=== PATIENT | male | born 1955 | race Caucasian/White ===

== ENCOUNTER 2017-10-25 11:18 | Outpatient (CLI) | payer MEDICARE ==
[~2017-10-25 11:18] MED LIST: FAMO-1 PO; ZOF4T PO
[2017-10-25 11:53] LABS: BASOPHILS # (AUTO) 0.1 X10'3 (0-0.2); BASOPHILS % (AUTO) 0.9 % (0-1); EOSINOPHILS # (AUTO) 0.1 X10'3 (0-0.9); EOSINOPHILS % (AUTO) 1.9 % (0-6); HEMATOCRIT 43.2 % (42.0-52.0); HEMOGLOBIN 14.8 g/dl (14.0-17.9); LYMPHOCYTES # (AUTO) 1.9 X10'3 (1.1-4.8); LYMPHOCYTES % (AUTO) 25.8 % (21-51); MEAN CORPUSCULAR HEMOGLOBIN 30.8 PG (27.0-31.0); MEAN CORPUSCULAR HGB CONC 34.3 % (33.0-36.5); MEAN CORPUSCULAR VOLUME 89.8 FL (78-98); MEAN PLATELET VOLUME 7.8 FL (7.4-10.4); MONOCYTES # (AUTO) 0.5 X10'3 (0-0.9); MONOCYTES % (AUTO) 7.2 % (2-12); NEUTROPHILS # (AUTO) 4.6 X10'3 (1.8-7.7); NEUTROPHILS % (AUTO) 64.2 % (42-75); PLATELET COUNT 251 X10'3 (140-440); RED BLOOD COUNT 4.81 X10'6 (4.70-6.10); RED CELL DISTRIBUTION WIDTH 12.9 % (11.5-14.5); WHITE BLOOD COUNT 7.2 X10'3 (4.5-11.0)
[2017-10-25 12:06] LABS: PARTIAL THROMBOPLASTIN TIME 26 SECONDS (22-32)
[2017-10-25 12:11] LABS: ANION GAP 6 (8-16); BLOOD UREA NITROGEN 14 MG/DL (7-18); BUN/CREATININE RATIO 15.9 (5.4-32.0); CALCIUM 9.5 MG/DL (8.5-10.1); CHLORIDE 103 MMOL/L (99-107); CREATININE 0.88 MG/DL (0.60-1.10); GLUCOSE 96 MG/DL (70-104); POTASSIUM 4.4 MMOL/L (3.5-5.1); SODIUM 139 MMOL/L (135-145); TOTAL CARBON DIOXIDE 30.3 MMOL/L (24-32); eGFR 88 ML/MIN
== END 2017-10-25 23:59 | disposition home or self-care (01) ==
LOC: SSTAY O 11:18 → EDSTATUS 10-28 06:30
PROVIDERS: ATTEND Internal Medicine Interventional Cardiology
DX: E78.4 Other hyperlipidemia (principal); G47.10 Hypersomnia, unspecified; R00.1 Bradycardia, unspecified; R07.2 Precordial pain; R06.02 Shortness of breath; Z98.890 Other specified postprocedural states
CPT/HCPCS: 36415; 80048; 85025; 85610; 85730

== ENCOUNTER 2017-11-02 05:12 | Day surgery (SDC) | payer MEDICARE ==
[~2017-11-02] VITALS: Ht 180.3 cm; Wt 106.2 kg
[2017-11-02] VITALS (12 sets, daily range): BP systolic 89–135; BP diastolic 48–83
[2017-11-02] MEDS ORDERED: ASPI81TA52 PO (05:22)
[2017-11-02] MEDS ORDERED: LORazepam 0.5 MG tablet PO ONE (05:35)
[2017-11-02] MEDS ORDERED: diphenhydrAMINE 25mg capsule PO ONE (05:35)
[2017-11-02] MEDS ORDERED: normal saline 1000ml 1,000 ML IV ONE (05:35)
[2017-11-02 06:06] LABS: BASOPHILS % (AUTO) 0.9 % (0-1); EOSINOPHILS # (AUTO) 0.2 X10'3 (0-0.9); EOSINOPHILS % (AUTO) 4.5 % (0-6); HEMATOCRIT 46.7 % (42.0-52.0); HEMOGLOBIN 16.1 g/dl (14.0-17.9); LYMPHOCYTES # (AUTO) 1.7 X10'3 (1.1-4.8); LYMPHOCYTES % (AUTO) 30.8 % (21-51); MEAN CORPUSCULAR HEMOGLOBIN 30.7 PG (27.0-31.0); MEAN CORPUSCULAR HGB CONC 34.5 % (33.0-36.5); MONOCYTES # (AUTO) 0.4 X10'3 (0-0.9); NEUTROPHILS # (AUTO) 3.1 X10'3 (1.8-7.7); NEUTROPHILS % (AUTO) 56.8 % (42-75); PLATELET COUNT 258 X10'3 (140-440); RED BLOOD COUNT 5.25 X10'6 (4.70-6.10); RED CELL DISTRIBUTION WIDTH 13.1 % (11.5-14.5); WHITE BLOOD COUNT 5.4 X10'3 (4.5-11.0)
[2017-11-02] MEDS ORDERED: LIDOcaine 1% 30ml vial 30 ML ONE (06:12)
[2017-11-02] MEDS ORDERED: iohexol 350MG/ML 100ml bottle IV ONE (06:12)
[2017-11-02 06:20] LABS: ALBUMIN 4.2 G/DL (3.4-5.0); ANION GAP 8 (8-16); BLOOD UREA NITROGEN 13 MG/DL (7-18); BUN/CREATININE RATIO 14.9 (5.4-32.0); CALCIUM 9.5 MG/DL (8.5-10.1); CHLORIDE 103 MMOL/L (99-107); CREATININE 0.87 MG/DL (0.60-1.10); GLUCOSE 100 MG/DL (70-104); SODIUM 139 MMOL/L (135-145); TOTAL CARBON DIOXIDE 28.1 MMOL/L (24-32); eGFR 89 ML/MIN
[2017-11-02] MEDS ORDERED: midazolam 2 mg/2 ml injection ONE (06:23)
[2017-11-02] MEDS ORDERED: proCHLORperazine 10 MG/2 ml inj IV PRN (07:25)
[2017-11-02] MEDS ORDERED: ondansetron/PF 4mg/2ml inj IV PRN (07:25)
[2017-11-02] MEDS ORDERED: OXAZEpam 15mg capsule PO PRN (07:25)
== END 2017-11-02 10:56 | disposition home or self-care (01) ==
LOC: SSTAY O 05:12
PROVIDERS: ATTEND Internal Medicine Interventional Cardiology
DX: I25.10 Atherosclerotic heart disease of native coronary artery without angina pectoris (principal); E78.5 Hyperlipidemia, unspecified
CPT/HCPCS: 36415; 80048; 85025; 85610; 93005; 93458; A6257; C1769; J1644; J2250; J3490; J7030; Q0163; Q9967; 99152; A4620

== ENCOUNTER 2022-04-03 08:23 | Day surgery (SDC) | payer MEDICARE ==
[2022-04-03] VITALS (9 sets, daily range): BP systolic 105–117; BP diastolic 69–83
[~2022-04-03] VITALS: Ht 182.9 cm; Wt 109.3 kg
[~2022-04-03 08:23] MED LIST changes: +ASPI81TA52 PO; -FAMO-1 PO; -ZOF4T PO
[2022-04-03] MEDS ORDERED: midazolam 1 mg/ML 2ml injection ONE ×2 (08:47→09:20)
[2022-04-03] MEDS ORDERED: fentaNYL/PF 50MCG/1 ML 2ML syringe ONE (08:47)
[2022-04-03] MEDS ORDERED: LIDOCAINE 2% w/EPI 1:100:000 30mL injection MDV**cath lab 1 only ONE (09:11)
[2022-04-03] MEDS ORDERED: ASPI-10 PO (09:11)
[2022-04-03] MEDS ORDERED: METO-395 PO (09:11)
[2022-04-03] MEDS ORDERED: proCHLORperazine 10 MG/2 ml inj IV PRN (10:25)
[2022-04-03] MEDS ORDERED: ondansetron/PF 4mg/2ml inj IV PRN (10:25)
[2022-04-03] MEDS ORDERED: acetaminophen 325mg tablet PO PRN (10:25)
[2022-04-03] MEDS ORDERED: normal saline 1000ml 1,000 ML IV SCH (10:25)
[2022-04-03] MEDS ORDERED: HYDROcodone/acetaminophen 5mg/325mg tablet PO PRN (10:25)
[2022-04-03] MEDS ORDERED: HYDROcodone/acetaminophen 10/325mg tab PO PRN (10:25)
== END 2022-04-03 12:35 | disposition home or self-care (01) ==
LOC: SSTAY O 08:23
PROVIDERS: ATTEND Internal Medicine Cardiovascular Disease
DX: R00.0 Tachycardia, unspecified (principal); Z87.891 Personal history of nicotine dependence; Z72.89 Other problems related to lifestyle; Z90.49 Acquired absence of other specified parts of digestive tract; Z98.890 Other specified postprocedural states; Z79.82 Long term (current) use of aspirin; Z79.899 Other long term (current) drug therapy; Z86.73 Personal history of transient ischemic attack (TIA), and cerebral infarction without residual deficits
CPT/HCPCS: 33285; C1764; J2250; J3010; J3490; J7030; 99152; A4620; A6449

== ENCOUNTER 2024-08-18 07:30 | Day surgery (SDC) | payer MEDICARE ==
[~2024-08-18] VITALS: Ht 182.9 cm; Wt 109.8 kg
[2024-08-18] VITALS (8 sets, daily range): BP systolic 104–121; BP diastolic 65–76; PULSE 62–78; RESP 16; TEMP 98.4; O2SAT 96
[~2024-08-18 07:30] MED LIST changes: -ASPI81TA52 PO; +FLEC100T PO; +METO-395 PO; +PANT40TA54 PO
[2024-08-18] MEDS ORDERED: METO-539 PO (08:06)
[2024-08-18] MEDS ORDERED: ASPI81TA52 PO (08:07)
[2024-08-18] MEDS ORDERED: ALBU18HF2 (08:08)
[2024-08-18 08:36] LABS: EOSINOPHILS # (AUTO) 0.2 X10'3 (0-0.9); EOSINOPHILS % (AUTO) 3.6 % (0-6); HEMATOCRIT 41.3 % (42.0-52.0); HEMOGLOBIN 14.2 g/dl (14.0-17.9); LYMPHOCYTES # (AUTO) 1.7 X10'3 (1.1-4.8); LYMPHOCYTES % (AUTO) 35.5 % (21-51); MEAN CORPUSCULAR HEMOGLOBIN 30.4 PG (27.0-31.0); MEAN CORPUSCULAR HGB CONC 34.3 g/dL (33.0-36.5); MEAN CORPUSCULAR VOLUME 88.6 FL (78-98); MEAN PLATELET VOLUME 7.8 FL (7.4-10.4); MONOCYTES # (AUTO) 0.4 X10'3 (0-0.9); NEUTROPHILS # (AUTO) 2.4 X10'3 (1.8-7.7); NEUTROPHILS % (AUTO) 50.9 % (42-75); PLATELET COUNT 224 X10'3 (140-440); RED BLOOD COUNT 4.66 X10'6 (4.70-6.10); RED CELL DISTRIBUTION WIDTH 13.8 % (11.5-14.5); WHITE BLOOD COUNT 4.7 X10'3 (4.5-11.0)
[2024-08-18] MEDS ORDERED: ceFAZolin 2gm in dextrose, iso 50 ML IV ONE (08:40)
[2024-08-18] MEDS: vancomycin 1,500 MG in NS 300ml IV soln IV ONE (08:51)
[2024-08-18 09:07] LABS: PROTHROMBIN TIME 10.6 SECONDS (9.0-12.0)
[2024-08-18 09:10] LABS: ALBUMIN 3.4 G/DL (3.4-5.0); ANION GAP 7 (8-16); BLOOD UREA NITROGEN 15 MG/DL (7-18); BUN/CREATININE RATIO 18.5 (10.0-20.0); CALCIUM 8.6 MG/DL (8.5-10.1); CHLORIDE 103 MMOL/L (99-107); CREATININE 0.81 MG/DL (0.60-1.10); GLUCOSE 105 MG/DL (70-104); POTASSIUM 4.3 MMOL/L (3.5-5.1); SODIUM 136 MMOL/L (135-145); TOTAL CARBON DIOXIDE 25.8 MMOL/L (24-32); eCRCL 96 ML/MIN; eGFR > 90 ML/MIN
[2024-08-18] MEDS ORDERED: midazolam 1 mg/ML 2ml injection ONE ×7 (10:50→12:47)
[2024-08-18] MEDS ORDERED: LIDOcaine 1% W/epiNEPHrine 1:100,000 20ml vial ONE (10:50)
[2024-08-18] MEDS ORDERED: vancomycin 1,000mg inj ONE (10:50)
[2024-08-18] MEDS ORDERED: fentaNYL/PF 50MCG/1 ML 2ML syringe ONE ×3 (10:50→12:20)
[2024-08-18] MEDS ORDERED: iohexol 350 MG/ML 50ML vial IV ONE (10:51)
[2024-08-18] MEDS ORDERED: normal saline 1000ml 1,000 ML IV SCH (15:05)
== END 2024-08-18 15:05 | disposition home or self-care (01) ==
LOC: SSTAY O 07:30
PROVIDERS: ATTEND Internal Medicine Cardiovascular Disease
DX: I49.5 Sick sinus syndrome (principal); I47.19 Other supraventricular tachycardia; Z87.891 Personal history of nicotine dependence; Z79.899 Other long term (current) drug therapy; Z90.49 Acquired absence of other specified parts of digestive tract; Z98.890 Other specified postprocedural states; Z80.0 Family history of malignant neoplasm of digestive organs
CPT/HCPCS: 33208; 36415; 71045; 80048; 83735; 85025; 85610; 93005; 99152; 99153; A4615; C1785; C1898; C8924; J2250; J3010; J3370; J3372; J3490; J7030; Q9967; Z7610; 93308

== ENCOUNTER 2024-09-28 22:17 | Emergency (ER) | payer MEDICARE ==
[~2024-09-28] VITALS: Ht 182.9 cm; Wt 106.8 kg
[~2024-09-28 22:17] MED LIST changes: +ALBU18HF2; +ASPI81TA52 PO; -FLEC100T PO; -METO-395 PO; +METO-539 PO; -PANT40TA54 PO
[2024-09-28 22:23] VITALS: TEMP 98.1
[2024-09-28 23:05] LABS: ALANINE AMINOTRANSFERASE 35 U/L (12-78); ALBUMIN 3.6 G/DL (3.4-5.0); ALKALINE PHOSPHATASE 102 IU/L (46-116); ANION GAP 9 (8-16); ASPARTATE AMINO TRANSFERASE 19 U/L (10-37); BILIRUBIN,TOTAL 0.5 MG/DL (0.1-1.0); BLOOD UREA NITROGEN 21 MG/DL (7-18); BUN/CREATININE RATIO 19.3 (10.0-20.0); CALCIUM 8.7 MG/DL (8.5-10.1); CHLORIDE 104 MMOL/L (99-107); CREATININE 1.09 MG/DL (0.60-1.10); GLUCOSE 176 MG/DL (70-104); POTASSIUM 4.1 MMOL/L (3.5-5.1); SODIUM 136 MMOL/L (135-145); TOTAL CARBON DIOXIDE 23.2 MMOL/L (24-32); TOTAL PROTEIN 7.3 G/DL (6.4-8.2); eCRCL 71 ML/MIN; eGFR 67 ML/MIN
[2024-09-28 23:07] LABS: BASOPHILS # (AUTO) 0.1 X10'3 (0-0.2); BASOPHILS % (AUTO) 0.5 % (0-1); EOSINOPHILS # (AUTO) 0.1 X10'3 (0-0.9); HEMATOCRIT 42.2 % (42.0-52.0); HEMOGLOBIN 14.8 g/dl (14.0-17.9); LYMPHOCYTES # (AUTO) 0.6 X10'3 (1.1-4.8); LYMPHOCYTES % (AUTO) 4.8 % (21-51); MEAN CORPUSCULAR HEMOGLOBIN 30.8 PG (27.0-31.0); MEAN CORPUSCULAR HGB CONC 35.1 g/dL (33.0-36.5); MEAN CORPUSCULAR VOLUME 87.8 FL (78-98); MEAN PLATELET VOLUME 8.1 FL (7.4-10.4); MONOCYTES # (AUTO) 0.5 X10'3 (0-0.9); MONOCYTES % (AUTO) 4.1 % (2-12); NEUTROPHILS # (AUTO) 11.3 X10'3 (1.8-7.7); NEUTROPHILS % (AUTO) 89.6 % (42-75); PLATELET COUNT 218 X10'3 (140-440); RED BLOOD COUNT 4.81 X10'6 (4.70-6.10); RED CELL DISTRIBUTION WIDTH 14.5 % (11.5-14.5); WHITE BLOOD COUNT 12.5 X10'3 (4.5-11.0)
[2024-09-28 23:13] LABS: PRO BRAIN NATRIURETIC PEPTIDE 60 PG/ML (0-125)
[2024-09-28] MEDS: normal saline 1000ml 1,000 ML IV ONE (23:24)
[2024-09-28] MEDS: ondansetron/PF 4mg/2ml inj IV ONE (23:24)
[2024-09-28] MEDS: acetaminophen 325mg tablet PO ONE (23:25)
[2024-09-28 23:43] LABS: D-DIMER 1.65 MG/L FEU (0-0.50)
[2024-09-29] MEDS ORDERED: iohexol 350MG/ML 100ml bottle IV ONE (00:04)
[2024-09-29] MEDS: proCHLORperazine 10 MG/2 ml inj IV ONE (01:52)
[2024-09-29] MEDS: metoclopramide 5 mg/ml inj IV ONE (02:28)
[2024-09-29] MEDS: ketorolac trometh 15mg/ml vial 15 MG/ML ML IV ONE (04:17)
[2024-09-29] MEDS: LORazepam 2 mg/ml vial IV ONE (04:59)
[2024-09-29] MEDS ORDERED: HYDR-3965 PO (06:02)
[2024-09-29] MEDS ORDERED: ONDA-245 PO (06:02)
[2024-09-29] MEDS ORDERED: AMOX-419 PO (06:02)
[2024-09-29 11:07] VITALS: BP 116/72; PULSE 96; RESP 13; O2SAT 94
== END 2024-09-29 11:09 | disposition home or self-care (01) ==
LOC: ER 22:18
DX: K52.9 Noninfective gastroenteritis and colitis, unspecified (principal); R07.89 Other chest pain; K21.9 Gastro-esophageal reflux disease without esophagitis; Z79.82 Long term (current) use of aspirin; Z79.899 Other long term (current) drug therapy; Z72.89 Other problems related to lifestyle; Z95.0 Presence of cardiac pacemaker
CPT/HCPCS: 36415; 71045; 71275; 74177; 78582; 80053; 83880; 84145; 84484; 85025; 85379; 87502; 87503; 93005; 96361; 96374; 96375; 99285; A4615; A9539; A9540; J0780; J1885; J2060; J2405; J2765; J7030; Q9967